=== PATIENT | male | born 1970 | race Caucasian/White ===

== ENCOUNTER 2016-09-17 09:25 | Emergency (ER) | payer OTHER ==
[~2016-09-17] VITALS: Ht 182.9 cm; Wt 110.8 kg
[~2016-09-17 09:25] MED LIST: AUGM875T27 PO; LISI5TAB PO; LOPR50TA PO; PERC7.5T12 PO; doxycycline PO
[2016-09-17] MEDS ORDERED: OMEP40CA2 PO (09:34)
[2016-09-17] MEDS ORDERED: ASPI81TA85 PO (09:34)
[2016-09-17 11:44] VITALS: BP 121/63
--- NOTE | 2016-09-17 13:54 | REP ---
LEFT RIB SERIES: Five views of the left ribs are performed and demonstrate no fracture or bone lesion. An accompanying view of the chest demonstrates no acute infiltrate, pneumothorax or pleural effusion. The heart is normal in size. IMPRESSION: No evidence of left rib fracture. Signed by Chemo Sweet MD 09/17/2016 03:21 P
== END 2016-09-17 11:46 | disposition home or self-care (01) ==
LOC: M ED 09:25
DX: S20.212A Contusion of left front wall of thorax, initial encounter (principal); Y04.0XXA Assault by unarmed brawl or fight, initial encounter; Y92.149 Unspecified place in prison as the place of occurrence of the external cause; Y93.9 Activity, unspecified; Y99.9 Unspecified external cause status; I10 Essential (primary) hypertension; G47.33 Obstructive sleep apnea (adult) (pediatric); F17.210 Nicotine dependence, cigarettes, uncomplicated

== ENCOUNTER → 2018-01-28 | Outpatient (CLI) | payer BC, OTHER | LOC: M WUC 17:46 | DX: M25.532 Pain in left wrist (principal) | CPT/HCPCS: 73110 ==

== ENCOUNTER → 2018-02-28 | Outpatient (REF) | payer BC, OTHER ==
[~2018-02-28] MED LIST changes: +ASPI81TA85 PO; +OMEP40CA2 PO
[2018-03-02 08:11] LABS: LDL DIRECT 110 mg/dL (0-99)
== END ==
LOC: M LAB REF 18:49
PROVIDERS: ATTEND Nurse Practitioner Adult Health
DX: R73.09 Other abnormal glucose (principal)

== ENCOUNTER 2018-11-26 20:27 | Emergency (ER) | payer BC, OTHER ==
[~2018-11-26] VITALS: Ht 182.9 cm; Wt 103.6 kg
[2018-11-26] MEDS ORDERED: IBUP80TA PO (20:56)
[2018-11-26] MEDS ORDERED: CLIN300C5 PO (20:56)
[2018-11-26] MEDS ORDERED: methylPREDNISolone INJ 125 MG/2 ML VIAL (J2930) IV ONE (23:15)
[2018-11-26] MEDS ORDERED: CLINDAMYCIN 900 MG in IV 1 EA IV ONE (23:15)
[2018-11-27 00:12] LABS: ERYTHROCYTE SEDIMENTATION RATE 37 mm/hr (0-15)
[2018-11-27 00:18] LABS: HEMATOCRIT 43.1 % (42.0-52.0); HEMOGLOBIN 14.7 g/dl (13.5-17.5); MEAN CORPUSCULAR HEMOGLOBIN 29.6 pg (27.0-33.0); MEAN CORPUSCULAR HGB CONC 34.1 g/dl (32.0-36.5); MEAN CORPUSCULAR VOLUME 86.7 fl (80.0-96.0); PLATELET COUNT, AUTOMATED 316 10^3/uL (150-450); RED BLOOD COUNT 4.97 10^6/uL (4.30-6.10); WHITE BLOOD COUNT 15.2 10^3/uL (4.0-10.0)
[2018-11-27] MEDS ORDERED: NORC1TAB7 PO (00:39)
[2018-11-27] MEDS ORDERED: PRED20TA PO (00:39)
[2018-11-27 00:47] VITALS: BP 123/67
== END 2018-11-27 00:49 | disposition home or self-care (01) ==
LOC: M ED 20:27
DX: K04.7 Periapical abscess without sinus (principal); K02.9 Dental caries, unspecified; E11.9 Type 2 diabetes mellitus without complications; I10 Essential (primary) hypertension; G47.30 Sleep apnea, unspecified; K21.9 Gastro-esophageal reflux disease without esophagitis; Z87.891 Personal history of nicotine dependence; Z79.82 Long term (current) use of aspirin; Z79.899 Other long term (current) drug therapy
CPT/HCPCS: 80047; 85027; 85652; 86140; 96365; 96375; 99284; J2930

== ENCOUNTER → 2019-08-30 | Outpatient (CLI) | payer BC, OTHER ==
[~2019-08-30] MED LIST changes: +CLIN300C5 PO; +IBUP80TA PO; +NORC1TAB7 PO; -OMEP40CA2 PO; +OMEP40CA97 PO; +PRED20TA PO
--- NOTE | 2019-08-30 09:57 | REP ---
Clinical: Pain. Technique: AP, lateral, bilateral oblique views of the left ankle. Findings: Post traumatic arthritic changes are appreciated along with old medial malleolus fracture. No acute fracture dislocation. Mild swelling. 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 Electronically Signed by Margarito Sullivan MD 08/30/2019 09:48 A
--- NOTE | 2019-08-30 10:00 | REP ---
Clinical: Pain. Technique: AP, lateral, bilateral oblique views of the left wrist. Findings: Distal radial and pancarpal mild degenerative changes include elements of periarticular cortical sclerosis with minimal amounts of joint space narrowing primarily involving the radiocarpal joint line. Subchondral cystic changes to the distal radius suggested. No acute fracture or dislocation. Impression: Mild arthritic degenerative changes. Electronically Signed by Margarito Sullivan MD 08/30/2019 09:51 A
[2019-08-30 12:19] LABS: BASO # 0.1 10^3/uL (0.0-0.2); BASO % 0.7 % (0.0-1.0); EOS # 0.1 10^3/uL (0.0-0.5); EOS % 1.4 % (0.0-3.0); HEMATOCRIT 43.7 % (42.0-52.0); HEMOGLOBIN 14.4 g/dl (13.5-17.5); LYMPH # 1.9 10^3/uL (1.5-5.0); LYMPH % 26.2 % (24.0-44.0); MEAN CORPUSCULAR HEMOGLOBIN 28.7 pg (27.0-33.0); MEAN CORPUSCULAR VOLUME 87.1 fl (80.0-96.0); MONO # 0.8 10^3/uL (0.0-0.8); MONO % 10.9 % (0.0-5.0); NEUTROPHILS # 4.4 10^3/uL (1.5-8.5); NEUTROPHILS % 60.1 % (36.0-66.0); PLATELET COUNT, AUTOMATED 343 10^3/uL (150-450); RED BLOOD COUNT 5.02 10^6/uL (4.30-6.10); WHITE BLOOD COUNT 7.3 10^3/uL (4.0-10.0)
[2019-08-30 13:00] LABS: ALBUMIN 3.9 GM/DL (3.2-5.2); ALT/SGPT 46 U/L (12-78); BILIRUBIN,TOTAL 0.5 MG/DL (0.2-1.0); BLOOD UREA NITROGEN 12 MG/DL (7-18); C REACTIVE PROTEIN QUANTITATIV 0.72 MG/DL (0.00-0.30); CALCIUM LEVEL 9.4 MG/DL (8.5-10.1); CARBON DIOXIDE LEVEL 29 MEQ/L (21-32); CHLORIDE LEVEL 104 MEQ/L (98-107); CREATININE FOR GFR 0.77 MG/DL (0.70-1.30); FREE T4 1.02 NG/DL (0.76-1.46); GLOMERULAR FILTRATION RATE > 60.0 (>60); GLUCOSE, FASTING 143 MG/DL (70-100); POTASSIUM SERUM 4.3 MEQ/L (3.5-5.1); RHEUMATOID FACTOR QUANT < 10.0 IU/ML (<15.0); SODIUM LEVEL 137 MEQ/L (136-145); TOTAL PROTEIN 7.8 GM/DL (6.4-8.2); URIC ACID 7.3 MG/DL (3.5-7.2)
[2019-09-02 20:08] LABS: ANTINUCLEAR ANTIBODIES DIRECT Negative (Negative); Lyme Disease IgG/IgM Antibodie <0.91 ISR (0.00-0.90); Lyme Disease IgM Ab Quantitati <0.80 index (0.00-0.79)
== END ==
LOC: M WUC 09:24
PROVIDERS: ATTEND Physician Assistant
DX: M25.532 Pain in left wrist (principal); M79.10 Myalgia, unspecified site; M25.572 Pain in left ankle and joints of left foot

== ENCOUNTER → 2019-10-03 | Outpatient (CLI) | payer BC, OTHER ==
[~2019-10-03] MED LIST changes: -ASPI81TA85 PO; +ASPI81TA86 PO
--- NOTE | 2019-11-21 10:07 | REP ---
MRI OF THE LEFT WRIST: HISTORY: Pain and swelling. TECHNIQUE: Multiple sequences obtained in the Axial, coronal and sagittal planes. FINDINGS: There is increased signal involving a portion of the triangular fibrocartilage complex near the ulnar styloid insertion, which may represent a partial tear of that structure. The scapholunate and lunotriquetral ligaments appear intact. The flexor and extensor tendons are intact with no significant tenosynovitis. The carpal tunnel region is unremarkable. There is a cystic structure in the deep musculature anterior to the distal radius measuring 8 mm in diameter, having the appearance of an intramuscular ganglion cyst. No other cyst is seen in the soft tissues. Mild scattered joint fluid is seen in the intercarpal joints. There is mild fluid in the distal radial ulnar joint. There is mild diffuse chondromalacia at the radiocarpal joint. There is a subcortical cyst anteriorly in the distal end of the radius, measuring 9 mm in diameter. There is mild bone marrow edema in the posterior hamate bone. No other bone marrow signal abnormalities are seen. IMPRESSION: Possible partial tear of the triangular fibrocartilage complex near the ulnar styloid insertion. Intramuscular ganglion cyst just anterior to the distal end of the radius measuring 8 mm in diameter. Nonspecific mild marrow edema in the posterior hamate bone. Mild chondromalacia at the radiocarpal joint with a subchondral cyst anteriorly in the distal end of the radius measuring 9 mm in diameter. Mild scattered fluid in the intercarpal joints as well as in the distal radioulnar joint. MTDD
== END ==
LOC: M RAD 07:45
PROVIDERS: ATTEND Orthopaedic Surgery Sports Medicine
DX: M67.432 Ganglion, left wrist (principal)

== ENCOUNTER → 2019-12-05 | Outpatient (REF) | payer OTHER | LOC: M LAB REF 16:07 | PROVIDERS: ATTEND Nurse Practitioner Adult Health | DX: M10.9 Gout, unspecified (principal) ==

== ENCOUNTER 2021-09-15 08:14 | Day surgery (SDC) | payer BC, OTHER ==
[~2021-09-15] VITALS: Ht 182.9 cm; Wt 103.4 kg
[~2021-09-15 08:14] MED LIST changes: +CHEL100T4 PO; +CLIN-250 PO; -CLIN300C5 PO; +ECOT81TA5 PO; +LIDOCAINE 2% 100MG/5ML SDV (FOR ANES.) As Ordered ONE; +LISI20TA33 PO; +METF-838 PO; +METO1TAB7 PO; +NS 1,000 ML IV ONE; +OMEP40CA4 PO; -OMEP40CA97 PO; +POTA540T PO; +VITA100065 PO; +VITALIQ60 MC; +fentaNYL 100 MCG/2 ML INJECTION As Ordered ONE; +propofoL 500 MG/50 ML VIAL As Ordered ONE
[2021-09-15 10:00] VITALS: BP 127/82
== END 2021-09-15 10:14 | disposition home or self-care (01) ==
LOC: M OPP 08:14
PROVIDERS: ATTEND Internal Medicine Gastroenterology
DX: Z12.11 Encounter for screening for malignant neoplasm of colon (principal); K64.0 First degree hemorrhoids; K44.9 Diaphragmatic hernia without obstruction or gangrene; K22.89 Other specified disease of esophagus; E11.9 Type 2 diabetes mellitus without complications; I10 Essential (primary) hypertension; G47.30 Sleep apnea, unspecified; J44.9 Chronic obstructive pulmonary disease, unspecified; F17.200 Nicotine dependence, unspecified, uncomplicated; Z79.82 Long term (current) use of aspirin; Z79.84 Long term (current) use of oral hypoglycemic drugs; Z79.899 Other long term (current) drug therapy; Z99.89 Dependence on other enabling machines and devices
CPT/HCPCS: 43239; 45378; 88305; J3010

== ENCOUNTER → 2022-01-04 | Outpatient (REF) | payer BC, OTHER ==
[~2022-01-04] MED LIST changes: -LIDOCAINE 2% 100MG/5ML SDV (FOR ANES.) As Ordered ONE; -NS 1,000 ML IV ONE; -fentaNYL 100 MCG/2 ML INJECTION As Ordered ONE; -propofoL 500 MG/50 ML VIAL As Ordered ONE
[2022-01-06 04:07] LABS: LDL DIRECT 100 mg/dL (0-99)
== END ==
LOC: M LAB REF 12:13
PROVIDERS: ATTEND Nurse Practitioner Adult Health
DX: E78.2 Mixed hyperlipidemia (principal)

== ENCOUNTER → 2022-03-08 | Outpatient (CLI) | payer BC, OTHER | LOC: M WUC 09:03 | PROVIDERS: ATTEND Nurse Practitioner Adult Health | DX: R06.02 Shortness of breath (principal) ==

== ENCOUNTER → 2022-12-05 | Outpatient (CLI) | payer OTHER ==
[2022-12-05 18:30] LABS: HEPATITIS B SURFACE ANTIBODY POSITIVE (POSITIVE)
[2022-12-05 18:48] LABS: HIV 1&2 SCREEN NEGATIVE (NEGATIVE)
[2022-12-05 18:56] LABS: HEPATITIS C VIRUS ABY INDEX 0.05 INDEX (<0.8)
[2022-12-07 13:07] LABS: HEPATITIS A IgG TOTAL Negative (Negative); HEPATITIS C QUANTITATION HCV Not Detected IU/mL (.)
== END ==
LOC: M WUC 12:35
PROVIDERS: ATTEND Internal Medicine Infectious Disease
DX: Z20.5 Contact with and (suspected) exposure to viral hepatitis (principal)

== ENCOUNTER → 2023-02-06 | Outpatient (CLI) | payer OTHER | LOC: M WUC 14:55 | PROVIDERS: ATTEND Physician Assistant | DX: M54.50 Low back pain, unspecified (principal) ==

== ENCOUNTER → 2023-02-14 | Outpatient (REF) | payer OTHER | LOC: M LABWUC 16:31 | PROVIDERS: ATTEND Nurse Practitioner Family | DX: M25.571 Pain in right ankle and joints of right foot (principal) ==

== ENCOUNTER → 2023-03-13 | Outpatient (REF) | payer OTHER | LOC: M LAB REF 16:05 | PROVIDERS: ATTEND Nurse Practitioner Adult Health | DX: M10.00 Idiopathic gout, unspecified site (principal) ==

== ENCOUNTER → 2023-04-13 | Outpatient (CLI) | payer OTHER ==
[2023-04-13 16:52] LABS: BASO # 0.1 10^3/uL (0.0-0.2); BASO % 0.6 % (0.0-1.0); EOS # 0.1 10^3/uL (0.0-0.5); HEMATOCRIT 42.8 % (42.0-52.0); HEMOGLOBIN 14.6 g/dl (13.5-17.5); LYMPH # 2.9 10^3/uL (1.5-5.0); LYMPH % 26.6 % (24.0-44.0); MEAN CORPUSCULAR HEMOGLOBIN 30.4 pg (27.0-33.0); MEAN CORPUSCULAR HGB CONC 34.1 g/dl (32.0-36.5); MEAN CORPUSCULAR VOLUME 89.2 fl (80.0-96.0); NEUTROPHILS # 6.7 10^3/uL (1.5-8.5); NEUTROPHILS % 61.1 % (36.0-66.0); PLATELET COUNT, AUTOMATED 375 10^3/uL (150-450); WHITE BLOOD COUNT 10.9 10^3/uL (4.0-10.0)
[2023-04-13 16:59] LABS: ERYTHROCYTE SEDIMENTATION RATE 43 mm/hr (0-20)
[2023-04-13 17:09] LABS: URIC ACID 8.7 MG/DL (3.7-9.2)
[2023-04-13 17:12] LABS: ALBUMIN 3.9 G/DL (3.2-5.2); ALKALINE PHOSPHATASE 58 U/L (46-116); ALT/SGPT 27 U/L (7.0-40); AST/SGOT 9 U/L (<34); BILIRUBIN,TOTAL 0.8 MG/DL (0.3-1.2); BLOOD UREA NITROGEN 18 MG/DL (9-23); CALCIUM LEVEL 9.1 MG/DL (8.5-10.1); CARBON DIOXIDE LEVEL 28 MMOL/L (20-31); CHLORIDE LEVEL 102 MMOL/L (98-107); CREATININE FOR GFR 0.77 MG/DL (0.70-1.30); GLOMERULAR FILTRATION RATE > 60.0 (>56); GLUCOSE, FASTING 184 MG/DL (60-100); POTASSIUM SERUM 4.3 MMOL/L (3.5-5.1); SODIUM LEVEL 136 MMOL/L (136-145); TOTAL PROTEIN 6.8 G/DL (5.7-8.2)
== END ==
LOC: M WUC 12:44
PROVIDERS: ATTEND Physician Assistant
DX: M25.571 Pain in right ankle and joints of right foot (principal)

== ENCOUNTER → 2023-09-07 | Outpatient (CLI) | payer BC, OTHER ==
[2023-09-07 16:59] LABS: BASO # 0.1 10^3/uL (0.0-0.2); BASO % 0.5 % (0.0-1.0); EOS # 0.1 10^3/uL (0.0-0.5); EOS % 1.3 % (0.0-3.0); HEMOGLOBIN 14.3 g/dl (13.5-17.5); LYMPH # 2.8 10^3/uL (1.5-5.0); MEAN CORPUSCULAR HEMOGLOBIN 29.4 pg (27.0-33.0); MEAN CORPUSCULAR VOLUME 86.4 fl (80.0-96.0); MONO # 0.9 10^3/uL (0.0-0.8); MONO % 9.6 % (2.0-8.0); NEUTROPHILS # 5.7 10^3/uL (1.5-8.5); NEUTROPHILS % 59.1 % (36.0-66.0); PLATELET COUNT, AUTOMATED 294 10^3/uL (150-450); RED BLOOD COUNT 4.86 10^6/uL (4.30-6.10); WHITE BLOOD COUNT 9.7 10^3/uL (4.0-10.0)
[2023-09-07 17:23] LABS: ALBUMIN 4.1 G/DL (3.2-5.2); ALKALINE PHOSPHATASE 60 U/L (46-116); ALT/SGPT 28 U/L (7.0-40); AST/SGOT 12 U/L (<34); BILIRUBIN,TOTAL 0.6 MG/DL (0.3-1.2); BLOOD UREA NITROGEN 13 MG/DL (9-23); CALCIUM LEVEL 9.1 MG/DL (8.5-10.1); CARBON DIOXIDE LEVEL 26 MMOL/L (20-31); CHLORIDE LEVEL 105 MMOL/L (98-107); CREATININE FOR GFR 0.66 MG/DL (0.70-1.30); GLOMERULAR FILTRATION RATE > 60.0 (>56); GLUCOSE, FASTING 106 MG/DL (60-100); SODIUM LEVEL 138 MMOL/L (136-145); TOTAL PROTEIN 6.8 G/DL (5.7-8.2)
[2023-09-07 17:24] LABS: FREE T3 3.5 PG/ML (2.3-4.2)
[2023-09-07 17:25] LABS: FREE T4 1.16 NG/DL (0.89-1.76); THYROID STIMULATING HORMONE 1.638 uIU/ML (0.55-4.78)
== END ==
LOC: M WUC 14:41
PROVIDERS: ATTEND Nurse Practitioner Adult Health
DX: R63.4 Abnormal weight loss (principal); I10 Essential (primary) hypertension; F17.219 Nicotine dependence, cigarettes, with unspecified nicotine-induced disorders

== ENCOUNTER → 2023-09-07 | Outpatient (CLI) | payer OTHER ==
[2023-09-07 17:22] LABS: HEPATITIS B SURFACE ANTIBODY POSITIVE (POSITIVE)
[2023-09-07 17:47] LABS: HIV 1&2 SCREEN NEGATIVE (NEGATIVE)
[2023-09-07 17:55] LABS: HEPATITIS C VIRUS ABY INDEX < 0.02 INDEX (<0.8)
[2023-09-09 12:27] LABS: HEPATITIS A IgG TOTAL REACTIVE (NON-REACTIVE)
[2023-09-11 11:17] LABS: HCV RNA QUANTITATION <15 NOT DETECTED IU/mL (NOT DETECTED); HCV RNA log10 <1.18 NOT DETECTED Log IU/mL (NOT DETECTED)
== END ==
LOC: M WUC 14:32
PROVIDERS: ATTEND Internal Medicine Infectious Disease
DX: Z20.5 Contact with and (suspected) exposure to viral hepatitis (principal); W46.0XXA Contact with hypodermic needle, initial encounter; Y99.9 Unspecified external cause status

== ENCOUNTER → 2023-11-27 | Outpatient (CLI) | payer BC ==
[~2023-11-27] MED LIST changes: +GASTROGRAFIN SOLUTION 30ML As Ordered ONE; +ISOVUE-370 76% 100ML VIAL As Ordered ONE
[2023-11-27 20:04] LABS: BLOOD UREA NITROGEN 13 MG/DL (9-23); CREATININE FOR GFR 0.71 MG/DL (0.70-1.30); GLOMERULAR FILTRATION RATE > 60.0 (>56)
== END ==
LOC: M RAD 14:11
PROVIDERS: ATTEND Internal Medicine Gastroenterology
DX: R63.4 Abnormal weight loss (principal); J98.11 Atelectasis; K76.9 Liver disease, unspecified; K40.90 Unilateral inguinal hernia, without obstruction or gangrene, not specified as recurrent; I70.0 Atherosclerosis of aorta; M16.0 Bilateral primary osteoarthritis of hip
CPT/HCPCS: 74178; 82565; 84520; Q9963; Q9967

== ENCOUNTER 2024-09-19 14:15 | Outpatient (RCR) | payer OTHER ==
[~2024-09-19 14:15] MED LIST changes: -GASTROGRAFIN SOLUTION 30ML As Ordered ONE; -ISOVUE-370 76% 100ML VIAL As Ordered ONE; -POTA540T PO; +POTA540T5 PO
== END 2024-09-26 ==
LOC: M PT 14:15
PROVIDERS: ATTEND Orthopaedic Surgery
DX: M75.42 Impingement syndrome of left shoulder (principal)